=== PATIENT | male | born 1960 | race Caucasian/White ===

== ENCOUNTER 2019-02-11 09:24 | Outpatient (RCR) | payer BC, OTHER, SELFPAY | END 2019-02-14 23:59 | disposition home or self-care (01) | LOC: CR 09:24 | PROVIDERS: PCP Internal Medicine; Visit Provider Family Medicine | DX: Z51.89 Encounter for other specified aftercare (principal) ==

== ENCOUNTER 2019-02-20 09:00 | Outpatient (RCR) | payer OTHER, SELFPAY | END 2019-03-16 23:59 | disposition home or self-care (01) | LOC: CR 09:00 | PROVIDERS: PCP Internal Medicine; Visit Provider Family Medicine | DX: Z51.89 Encounter for other specified aftercare (principal); Z95.2 Presence of prosthetic heart valve | CPT/HCPCS: S9472 ==

== ENCOUNTER 2019-11-14 18:38 | Emergency (ER) | payer BC, SELFPAY ==
[2019-11-14 18:51] VITALS: BP 172/86; PULSE 82; RESP 16; TEMP 36.8; O2SAT 98
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
[2019-11-14] MEDS: Ibuprofen 600 MG TAB PO (19:30)
[2019-11-14 20:15] VITALS: BP 158/76; PULSE 68; RESP 16; TEMP 36.6; O2SAT 99
== END 2019-11-14 20:35 | disposition home or self-care (01) ==
PROVIDERS: Emergency Provider Physician Assistant
DX: T23.251A Burn of second degree of right palm, initial encounter (principal); T23.252A Burn of second degree of left palm, initial encounter; X08.8XXA Exposure to other specified smoke, fire and flames, initial encounter
CPT/HCPCS: 16020; 90471

== ENCOUNTER 2022-08-26 07:09 | Emergency (ER) | payer BC, SELFPAY ==
[2022-08-26] VITALS (123 sets, daily range): BP systolic 63–172; BP diastolic 35–94; PULSE 53–85; RESP 10–27; O2SAT 92–100
--- NOTE | 2022-08-26 07:00 | RT.EKG_ITS ---
APPROVED REPORT Exam: Resting ECG Reason for Exam: chest pain Patient Location: E HR:66 bpm ECG Measurements Heart Rate 66 AXIS TN 150 P 17 QRSd 108 QRS 35 QT 403 T 60 QTc 422 Conclusion Sinus rhythm...normal P axis, V-rate 60- 99 Physician: no significant st elevation or depression, minimal questionable elevation in III. No stemi
--- NOTE | 2022-08-26 07:20 | ED.GENADUL_ITS ---
Discharge Plan Discharge Details Chief Complaint: Chest Pain Clinical Impression: Chest pressure Primary Care Provider: Mayda Ramirez ED Provider: César Dennison Home Meds and New Rx's Prescriptions: No Action clonazepam 1 mg Tablet 0.5 mg PO DAILY sertraline 25 mg Tablet 6 mg PO DAILY vitamin S21-[id number] acid 1-0.8 mg Tablet 1 tab PO DAILY red yeast rice 600 mg Tablet 600 mg PO DAILY Vitamin D3 100 mcg (4,000 unit) Capsule 100 mcg PO ONCE Medical Decision Making 62-year-old male with a past medical history of mitral valve surgery/replacement few years ago, family history of heart/cardiac disease, who presents today for evaluation of chest pain. Patient states that he has had chest pain ever since he had his mitral valve replaced, however today's episode is more intense than it has ever been before. 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 He denies any tearing or ripping sensation. He describes it as a notable pressure with associated shortness of breath. He states that the pain has not improved. He states that it is not worse with exertion. He denies any syncope or headache. He denies any tobacco use. He denies any history of diabetes, hypertension, or high cholesterol. He does not smoke. He denies any other complaints at this time. Physical exam demonstrates well-appearing male. The patient does not open his eyes during the exam. He does appear to be in mild distress, but has no evidence of tachycardia or hypotension. No rash or reproducible chest wall pain. During the interview/medical examination process the patient was quite irritated with our triage line of questioning. who is at bedside stated that his symptoms are often brought on with issues of stress and pressure, however upon hearing this the patient made clear that he did not want to discuss this any further. Differential at this time includes cardiac ischemic etiology, however EKG shows no evidence of STEMI. Pericarditis, PE, or pleurisy are on the differential. Dissection appears less likely given the normal radial pulses, stable heart rate, and clinical symptoms. Although anxiety may be a component of his symptoms, I do feel that these other concerning etiologies need to be assessed. We will evaluate for these, get a D-dimer, evaluate for signs of heart strain, monitor closely and reassess. 7:39 AM Patient's chest pain improved from an 8 to a 4 after 2x nitroglycerin. Morphine was given for the remainder of his pain. We will continue to monitor. Patient will be signed out to my colleague for follow-up on labs and imaging pending the D-dimer results. HPI General Date/Time Provider Initiated Documentation: 08/26/22 07:12 . HPI Narrative: 62-year-old male with a past medical history of mitral valve webb rgery/replacement few years ago, family history of heart/cardiac disease, who presents today for evaluation of chest pain. Patient states that he has had chest pain ever since he had his mitral valve replaced, however today's episode is more intense than it has ever been before. 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 He denies any tearing or ripping sensation. He describes it as a notable pressure with associated shortness of breath. He states that the pain has not improved. He states that it is not worse with exertion. He denies any syncope or headache. He denies any tobacco use. He denies any history of diabetes, hypertension, or high cholesterol. He does not smoke. He denies any other complaints at this time. Related Data Home Medications Medication Instructions Recorded Confirmed cholecalciferol (vitamin D3) 100 100 mcg PO ONCE 08/26/22 08/26/22 mcg (4,000 unit) capsule clonazepam 1 mg tablet 0.5 mg PO DAILY 08/26/22 08/26/22 red yeast rice 600 mg tablet 600 mg PO DAILY 08/26/22 08/26/22 sertraline 25 mg tablet 6 mg PO DAILY 08/26/22 08/26/22 vitamin B12 1 mg-folic acid 0.8 mg 1 tab PO DAILY 08/26/22 08/26/22 tablet Allergies Allergy/AdvReac Type Severity Reaction Status Date / Time No Known Allergies Allergy Unverified 08/26/22 07:19 General Stated Complaint: Chest Pain NOÉ: 2 Review of Systems All systems reviewed & are unremarkable except as noted in HPI and below PFSH All Active Problems (Updated 08/26/22 @ 07:40 by César R Gattman, DO) Chest pressure (Acute) Medical History Anxiety Depression Elevated lipids GERD (gastroesophageal reflux disease) Insomnia Sleep apnea Social History Smoking/Tobacco Use Status: Never Smoking risk assessment performed?: Yes Substance use type: former substance user Do you feel safe at home: Yes Do you feel safe in your relationship?: Yes Exam Narrative Exam Narrative: 1.Const: Well-nourished, Well-developed, appearing stated age 2.Eyes: PERRL, no conjunctival injection, and symmetrical lids. 3.ENT: Atraumatic external nose and ears. Moist MM. Neck: Symmetric, trachea midline, No thyromegaly. 4.CVS: +S1/S2, No gallops. Peripheral pulses 2+ and equal in all extremities. Brisk capillary refill in all extremities. Radial pulse +2 bilaterally 5.RESP: Unlabored respiratory effort. Clear to auscultation bilaterally. No wheezes rales or rhonchi 6.GI: Soft, Nontender/Nondistended, No hepatosplenomegaly. No guarding or rebound. 7.MSK: Normocephalic/Atraumatic, Extremities w/o deformity or ttp No cyanosis or clubbing, Normal movement of all extremities 8.Skin: Warm, Dry. No rashes or lesions. 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 Sensation grossly intact, no focal neurologic deficits. 10.Psych: (AAO) x3. Appropriate mood and affect Course Vital Signs Vital signs: Vital Signs Pulse 65 08/26/22 07:14 Respiratory Rate 22 08/26/22 07:14 Blood Pressure 161/94 H 08/26/22 07:14 Pulse Oximetry 100 08/26/22 07:14 Temperature Source Skin 08/26/22 07:14 Pulse 65 08/26/22 07:14 Respiratory Rate 22 08/26/22 07:14 Blood Pressure 161/94 H 08/26/22 07:14 Blood Pressure Position Supine 08/26/22 07:14 Pulse Oximetry 100 08/26/22 07:14 Oxygen Delivery Method Room Air 08/26/22 07:14 Oxygen Flow Rate 0 08/26/22 07:14 Pain Level 6 08/26/22 07:14
[2022-08-26] MEDS: nitroGLYcerin 0.4 MG TAB SL ×2 (07:26→07:43)
[2022-08-26] MEDS: Aspirin 81 MG CHEW 324 MG CH (07:26)
[2022-08-26] MEDS: MORPHine 4 MG/ML SYR IVP (07:27)
[2022-08-26 07:29] LABS: Abs Immature Grans 0.02 10^3/uL (0.0-0.06); Absolute Basophil Count 0.01 10^3/uL (0.0-0.2); Absolute Eosinophil Count 0.06 10^3/uL (0.0-0.7); Absolute Lymphocyte Count 1.38 10^3/uL (1.2-3.4); Absolute Monocyte Count 0.54 10^3/uL (0.1-0.8); Absolute Neutrophil Count 3.58 10^3/uL (1.2-6.7); Basophils % 0.2; Eosinophils % 1.1; HCT 44.9 % (40.0-50.0); HGB 15.5 g/dL (13.5-17.5); Immature Grans % 0.4; Lymphocytes % 24.7; MCH 29.6 pg (27.0-33.0); MCHC 34.5 % (32.0-36.0); MCV 86 fL (80-95); MPV 11.2 fL (8.0-11.0); Monocytes % 9.7; Neutrophils % 63.9; Platelet Count 201 10^3/uL (130-400); RBC 5.24 10^6/uL (4.36-5.78); RDW 11.9 % (11.8-14.1); RDW-SD 37.3 fL; WBC 5.59 10^3/uL (4.4-10.8)
[2022-08-26] MEDS: Normal Saline 1,000 ML 1000 ML IV (07:45)
[2022-08-26 07:51] LABS: PTT Activated 20.4 sec (21.5-31.9)
[2022-08-26 07:53] LABS: ALT 25 U/L (16-63); AST 6 U/L (15-37); Albumin 3.4 g/dL (3.4-5.0); Alkaline Phosphatase 89 U/L (46-116); BUN 26 mg/dL (7-18); Bilirubin, Total 0.3 mg/dL (0.2-1.0); CREATININE 1.1 mg/dL (0.70-1.30); Calcium 9.1 mg/dL (8.5-10.1); Chloride 102 mmol/L (98-107); Estimated GFR 76.85 (mL/min/1.73m2); Glucose 216 mg/dL (74-106); Magnesium 1.8 mg/dL (1.8-2.4); NT-proBNP 18 pg/mL (<300); Potassium 3.7 mmol/L (3.5-5.1); Sodium 138 mmol/L (136-145); Total Protein 6.7 g/dL (6.4-8.2); Troponin I < 50 ng/L (<or=60)
[2022-08-26] MEDS: Normal Saline Flush 10 ML SYR IVP (08:04)
[2022-08-26 08:17] LABS: D-Dimer 464 ng/mlFEU (<500)
--- NOTE | 2022-08-26 09:30 | DI.RAD_ITS ---
Exam(s) XR PORTABLE CHEST AP EXAM: XR PORTABLE CHEST AP CLINICAL HISTORY: chest pain TECHNIQUE: 2D digital imaging was performed. COMPARISON: No exams were available for comparison FINDINGS: Leads overlie the chest. LUNGS: Clear. No pleural abnormality seen. HEART: Mildly enlarged. AORTA: Normal diameter. BONES: Unremarkable for age. Sternal wires. Soft tissues: Unremarkable. IMPRESSION: No acute findings. DATA REPOSITORY: RADIATION DOSE DELIVERED:
--- NOTE | 2022-08-26 10:33 | DI.VRAD_ITS ---
PROCEDURE INFORMATION: Exam: XR Chest Exam date and time: 08/26/2022 10:00 AM Age: 62 years old Clinical indication: Other: Chest pain TECHNIQUE: Imaging protocol: Radiologic exam of the chest. Views: 1 view. COMPARISON: No relevant prior studies available. FINDINGS: Lungs: Unremarkable. No consolidation. Pleural spaces: Unremarkable. No pleural effusion. No pneumothorax. Heart/Mediastinum: Unremarkable. No cardiomegaly. Bones/joints: Median sternotomy IMPRESSION: No acute process Dictated and Authenticated by: Kana Calle MD. Ordering:ELBA Nix MD
--- NOTE | 2022-08-26 10:45 | RT.EKG_ITS ---
APPROVED REPORT Exam: Resting ECG Reason for Exam: elevated trop Patient Location: E HR:62 bpm ECG Measurements Heart Rate 62 AXIS MO 142 P 49 QRSd 104 QRS 12 QT 417 T 53 QTc 425 Conclusion Sinus rhythm...normal P axis, V-rate 60- 99
[2022-08-26 10:53] LABS: Troponin I 816 ng/L (<or=60)
[2022-08-26] MEDS: Clopidogrel 300 MG TAB PO ×2 (11:03→12:24)
[2022-08-26] MEDS: clonazePAM 0.5 MG TAB PO (11:17)
--- NOTE | 2022-08-26 11:56 | W.EDPROG ---
Date of service: 08/26/22 Time of Service: 11:56 Medical Decision Making Patient was signed out by Dr. Dennison, please see his documentation regarding initial ED presentation course. Plan at signout was to follow-up on labs and reassess patient for disposition. Patient has received nitroglycerin sublingual x3 and pain resolved. He was hypotensive transiently with nitroglycerin. 1155 --labs reviewed: Initial troponin negative, delta troponin 816. I called [facility] transfer center to request transfer. Second EKG was reviewed and interpreted by me: Questionable subtle less than [address] elevation in lead III and aVF, unchanged from prior EKG sinus rhythm 62 bpm, nondiagnostic. Chest x-ray was reviewed and interpreted by radiology: No acute process. Mediastinum noted to be unremarkable. No cardiomegaly. I spoke with cardiology at [facility] [place]. Infante -discussed ED presentation course, he will accept the patient on behalf of of Dr. Hannah. Dr. Hannah is excepting physician. Awaiting bed availability. Dr. Christine recommends additional Plavix 300 mg be given. He also recommends atorvastatin 80mg. All results and treatment plan discussed with the patient who is in agreement. He is anxious. Klonopin 0.5 mg as prescribed outpatient was given for anxiety. 1535 --still awaiting bed placement. Repeat troponin 2622. Repeat EKG was reviewed and interpreted by me and nondiagnostic with no significant dynamic change. Medical Records Medical records reviewed: Yes I reviewed the patient's medical records. Lab Data Lab results reviewed: Yes I reviewed the patient's lab results. Labs: Laboratory Tests Range/Units 08/26/22 08/26/22 08/26/22 07:22 07:22 07:22 WBC (4.4-10.8) 10^3/uL 5.59 RBC (4.36-5.78) 10^6/uL 5.24 Hgb (13.5-17.5) g/dL 15.5 Hct (40.0-50.0) % 44.9 MCV (80-95) fL 86 MCH (27.0-33.0) pg 29.6 MCHC (32.0-36.0) % 34.5 RDW (11.8-14.1) % 11.9 Plt Count (130-400) 10^3/uL 201 MPV (8.0-11.0) fL 11.2 H Immature Gran % 0.4 Neutrophils % 63.9 Lymphocytes % 24.7 Monocytes % 9.7 Eosinophils % 1.1 Basophils % 0.2 Nucleated RBC % (0.0-0.3) % 0.0 Absolute Neutrophils (1.2-6.7) 10^3/uL 3.58 Absolute Lymphocytes (1.2-3.4) 10^3/uL 1.38 Absolute Monocytes (0.1-0.8) 10^3/uL 0.54 Absolute Eosinophils (0.0-0.7) 10^3/uL 0.06 Absolute Basophils (0.0-0.2) 10^3/uL 0.01 PT (9.3-11.0) sec 10.0 INR (0.9-1.1) 1.0 APTT (21.5-31.9) sec 20.4 L D-Dimer (<500) ng/mlFEU 464 Sodium (136-145) mmol/L 138 Potassium (3.5-5.1) mmol/L 3.7 Chloride (98-107) mmol/L 102 Carbon Dioxide (21.0-32.0) mmol/L 24.0 Anion Gap (3-11) mmol/L 12.0 H BUN (7-18) mg/dL 26 H Creatinine (0.70-1.30) mg/dL 1.1 Est GFR (CKD-EPI 2020) (mL/min/1.73m2) 76.85 Glucose (74-106) mg/dL 216 H Calcium (8.5-10.1) mg/dL 9.1 Magnesium (1.8-2.4) mg/dL 1.8 Total Bilirubin (0.2-1.0) mg/dL 0.3 AST (15-37) U/L 6 L ALT (16-63) U/L 25 Alkaline Phosphatase (46-116) U/L 89 Troponin I (<or=60) ng/L < 50 NT-Pro-B Natriuret Pep (<300) pg/mL 18 Total Protein (6.4-8.2) g/dL 6.7 Albumin (3.4-5.0) g/dL 3.4 Range/Units 08/26/22 10:20 WBC (4.4-10.8) 10^3/uL RBC (4.36-5.78) 10^6/uL Hgb (13.5-17.5) g/dL Hct (40.0-50.0) % MCV (80-95) fL MCH (27.0-33.0) pg MCHC (32.0-36.0) % RDW (11.8-14.1) % Plt Count (130-400) 10^3/uL MPV (8.0-11.0) fL Immature Gran % Neutrophils % Lymphocytes % Monocytes % Eosinophils % Basophils % Nucleated RBC % (0.0-0.3) % Absolute Neutrophils (1.2-6.7) 10^3/uL Absolute Lymphocytes (1.2-3.4) 10^3/uL Absolute Monocytes (0.1-0.8) 10^3/uL Absolute Eosinophils (0.0-0.7) 10^3/uL Absolute Basophils (0.0-0.2) 10^3/uL PT (9.3-11.0) sec INR (0.9-1.1) APTT (21.5-31.9) sec D-Dimer (<500) ng/mlFEU Sodium (136-145) mmol/L Potassium (3.5-5.1) mmol/L Chloride (98-107) mmol/L Carbon Dioxide (21.0-32.0) mmol/L Anion Gap (3-11) mmol/L BUN (7-18) mg/dL Creatinine (0.70-1.30) mg/dL Est GFR (CKD-EPI 2020) (mL/min/1.73m2) Glucose (74-106) mg/dL Calcium (8.5-10.1) mg/dL Magnesium (1.8-2.4) mg/dL Total Bilirubin (0.2-1.0) mg/dL AST (15-37) U/L ALT (16-63) U/L Alkaline Phosphatase (46-116) U/L Troponin I (<or=60) ng/L 816 H* NT-Pro-B Natriuret Pep (<300) pg/mL Total Protein (6.4-8.2) g/dL Albumin (3.4-5.0) g/dL Critical Care Time Critical Care Time Critical Care Time: Yes Total Critical Care Time: 50 Attestation: I spent greater than 50 minutes addressing this patient's immediate life threats. Please see MDM section of note. This time was spent engaged in work directly related to the patient's care, exclusive of separate procedures, and failure to initiate these interventions would have likely resulted in clinically significant or life threatening deterioration in the patient's condition. Sign Out Sign Out Data: Sign Out Comment: Chest pressure for the last 40 minutes, history of mitral valve surgery, follow-up on D-dimer and labs. Determine imaging based on D-dimer. Would recommend chest x-ray at baseline. Last updated by César Dennison DO at 08/26/22 07:59 Discharge Plan Disposition Patient Disposition: Transfer-Acute Inpatient Care Specific Acute Inpt Facility: [facility] [place] Condition: Serious Discharge Details Clinical Impression: Acute non-ST elevation myocardial infarction (NSTEMI) Primary Care Provider: Mayda Ramirez ED Provider: Boyd Mccrary Home Meds and New Rx's Prescriptions: No Action clonazepam 1 mg Tablet 0.5 mg PO DAILY sertraline 25 mg Tablet 6 mg PO DAILY vitamin M04-[id number] acid 1-0.8 mg Tablet 1 tab PO DAILY red yeast rice 600 mg Tablet 600 mg PO DAILY Vitamin D3 100 mcg (4,000 unit) Capsule 100 mcg PO ONCE
[2022-08-26] MEDS: Atorvastatin 40 MG TAB 80 MG PO (13:26)
--- NOTE | 2022-08-26 14:15 | RT.EKG_ITS ---
APPROVED REPORT Exam: Resting ECG Reason for Exam: NSTEMI Patient Location: E HR:57 bpm ECG Measurements Heart Rate 57 AXIS GA 158 P 43 QRSd 99 QRS 13 QT 412 T 50 QTc 402 Conclusion Sinus bradycardia...rate< 60
[2022-08-26 14:55] LABS: Troponin I 2622 ng/L (<or=60)
--- NOTE | 2022-08-26 15:50 | NUR.NOTE ---
Nursing Note: patient continues to deny chest pain or SOB, patient continues on Heparin drip per protocol.
--- NOTE | 2022-08-26 16:00 | RT.EKG_ITS ---
APPROVED REPORT Exam: Resting ECG Reason for Exam: chest pain Patient Location: E HR:57 bpm ECG Measurements Heart Rate 57 AXIS NV 154 P 1 QRSd 98 QRS 9 QT 407 T 45 QTc 396 Conclusion Sinus bradycardia...rate< 60 sinus rhythm, normal axis, normal intervals, non ischemic
[2022-08-26 17:40] LABS: PTT Activated 52.3 sec (21.5-31.9)
[2022-08-26 17:46] LABS: Troponin I 3537 ng/L (<or=60)
== END 2022-08-26 18:01 | disposition short-term general hospital (02) ==
PROVIDERS: Student in an Organized Health Care Education/Training Program; Emergency Provider Physician Assistant; PCP Internal Medicine
DX: I21.4 Non-ST elevation (NSTEMI) myocardial infarction (principal); Z95.4 Presence of other heart-valve replacement
CPT/HCPCS: 36415; 80053; 93005; 96361; 96374; 99291; 71045; 83735; 83880; 84484; 85025; 85379; 85610; 85730; 93010; J2270